=== PATIENT | male | born 1975 | race Caucasian/White ===

== ENCOUNTER 2017-02-28 22:10 | Emergency (ER) | payer SELFPAY ==
[2017-02-28 22:10] VITALS: BMI 20.9
[2017-02-28 22:17] VITALS: BP 136/86; PULSE 98; TEMP 97.8; O2SAT 98
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
[2017-03-01 00:23] VITALS: RESP 20
== END 2017-03-01 00:22 | disposition home or self-care (01) ==
LOC: C.ER 22:10
DX: S05.11XA Contusion of eyeball and orbital tissues, right eye, initial encounter (principal); Y09 Assault by unspecified means